=== PATIENT | female | born 1960 | race Caucasian/White ===

== ENCOUNTER 2017-04-14 23:06 | Emergency (ER) | payer MEDICARE, OTHER ==
[~2017-04-14] VITALS: Ht 160 cm; Wt 55.0 kg
[2017-04-14 23:15] VITALS: Ht 160 cm; Wt 55.0 kg
[2017-04-15] MEDS ORDERED: LEVETIRACETAM 1000 MG (PMX) 100 ML IVPB STA (00:09)
[2017-04-15] MEDS ORDERED: SOD CHLORIDE 0.9% 500 ML IV STA (00:09)
[2017-04-15] MEDS ORDERED: LORAZEPAM 2 MG INJ IV STA (00:09)
[2017-04-15 00:30] LABS: BASOPHILS % 0.8 % (0.0-2.0); EOSINOPHILS # 0.3 10^3/ul (0.0-0.5); EOSINOPHILS % 6.5 % (0.0-7.0); HEMATOCRIT 43.2 % (37.0-47.0); HEMOGLOBIN 15.4 g/dl (12.0-16.0); LYMPHOCYTES # 1.5 10^3/ul (0.8-2.9); LYMPHOCYTES % 31.3 % (15.0-51.0); MEAN CORPUSCULAR HEMOGLOBIN 39.4 pg (29.0-33.0); MEAN CORPUSCULAR HGB CONC 35.6 g/dl (32.0-37.0); MEAN CORPUSCULAR VOLUME 110.5 fl (82.0-101.0); MEAN PLATELET VOLUME 8.8 fl (7.4-10.4); MONOCYTE # 0.4 10^3/ul (0.3-0.9); MONOCYTES % 7.1 % (0.0-11.0); NEUTROPHIL # 2.6 10^3/ul (1.6-7.5); NEUTROPHILS % 53.7 % (39.0-77.0); PLATELET COUNT 186 10^3/UL (140-415); RED BLOOD COUNT 3.91 10^6/ul (4.20-5.40); RED CELL DISTRIBUTION WIDTH 12.4 % (11.5-14.5); WHITE BLOOD COUNT 4.9 10^3/ul (4.8-10.8)
[2017-04-15 00:57] LABS: ANION GAP 15 (8-16); BLOOD UREA NITROGEN 7 mg/dl (7-20); CALCIUM 9.9 mg/dl (8.4-10.2); CARBON DIOXIDE 27 mmol/L (21-31); CHLORIDE 103 mmol/L (97-110); CREATININE 0.72 mg/dl (0.44-1.00); GLUCOSE 83 mg/dl (70-220); POTASSIUM 3.9 mmol/L (3.5-5.1); SODIUM 141 mmol/L (135-144)
[2017-04-15 01:11] LABS: TROPONIN-I < 0.012 ng/ml (0.00-0.12)
--- NOTE | 2017-04-15 01:40 | RADRPT ---
PROCEDURE: XR Chest. CLINICAL INDICATION: Seizure. TECHNIQUE: Single frontal view of the chest. COMPARISON: None. FINDINGS: The cardiomediastinal silhouette is within normal limits. The lungs are clear. No signs of pleural f luid or pneumothorax are seen. The osseous structures and soft tissues are unremarkable. IMPRESSION: No evidence for active cardiopulmonary disease. RPTAT: [facility] Physician Denise Date Time Electronically viewed and signed by Physician Denise on 04/15/2017 01:40 RS/
--- NOTE | 2017-04-15 01:43 | RADRPT ---
PROCEDURE: CT head, without contrast. CLINICAL INDICATION: Seizure. TECHNIQUE: Noncontrast CT examination of the head, with axial, sagittal and coronal reformatted im ages. Automated dose exposure control was employed. CTDI: 45.01 and DLP: 720.23. COMPARISON: None. FINDINGS: No acute hemorrhage. Subarachnoid spaces are substantially preserved and symmetric. Ventricles ar e unremarkable. No mass effect. Ball-white matter distinction is preserved without evident decreased attenuation t o suggest acute or recent infarct. Sinuses and osseous structures are unremarkable. IMPRESSION: No acute process in the head. RPTAT: [facility] Physician Denise Date Time Electronically viewed and signed by Physician Denise on 04/15/2017 01:42 RS/
--- NOTE | 2017-04-15 02:03 | ERD ---
ER Documentation Chief Complaint Date/Time DATE: 04/15/17 TIME: 02:03 Chief Complaint seizure unwitnessed; not taking any seizure meds; hx of seizure per pt HPI Significant female who underwent a seizure. Patient history of seizure disorder not taking meds. No tongue biting no incontinence. No trauma. No other current complaints. ROS All systems reviewed and are negative except as per history of present illness. Allergies Allergies: Coded Allergies: No Known Allergy (Unverified , 04/14/17) Physical Exam Vitals Vital Signs Date Time Temp Pulse Resp B/P Pulse Ox O2 Delivery O2 Flow Rate FiO2 04/14/17 23:15 98.4 102 20 105/64 99 Physical Exam Const: [] Head: Atraumatic Eyes: Normal Conjunctiva ENT: Normal External Ears, Nose and Mouth. Neck: Full range of motion..~ No meningismus. Resp: Clear to auscultation bilaterally Cardio: Regular rate and rhythm, no murmurs Abd: Soft, non tender, non distended. Normal bowel sounds Skin: No petechiae or rashes Back: No midline or flank tenderness Ext: No cyanosis, or edema Neur: Awake and alert Psych: Normal Mood and Affect Result Diagram: 04/15/17 0015 04/15/17 0015 Results 24 hrs Laboratory Tests Test 04/15/17 00:15 White Blood Count 4.910^3/ul Red Blood Count 3.9110^6/ul Hemoglobin 15.4g/dl Hematocrit 43.2% Mean Corpuscular Volume 110.5fl Mean Corpuscular Hemoglobin 39.4pg Mean Corpuscular Hemoglobin Concent 35.6g/dl Red Cell Distribution Width 12.4% Platelet Count 26885^3/UL Mean Platelet Volume 8.8fl Neutrophils % 53.7% Lymphocytes % 31.3% Monocytes % 7.1% Eosinophils % 6.5% Basophils % 0.8% Nucleated Red Blood Cells % 0.0/100WBC Neutrophils # 2.610^3/ul Lymphocytes # 1.510^3/ul Monocytes # 0.410^3/ul Eosinophils # 0.310^3/ul Basophils # 0.010^3/ul Nucleated Red Blood Cells # 0.010^3/ul Sodium Level 141mmol/L Potassium Level 3.9mmol/L Chloride Level 103mmol/L Carbon Dioxide Level 27mmol/L Anion Gap 15 Blood Urea Nitrogen 7mg/dl Creatinine 0.72mg/dl Glucose Level 83mg/dl Calcium Level 9.9mg/dl Troponin I < 0.012ng/ml Current Medications Medications (Trade) Dose Ordered Sig/Cely Route PRN Reason Start Time Stop Time Status Last Admin Dose Admin Sodium Chloride (NS) 500 ml @ 500 mls/hr Q1H STAT IV 04/15/17 00:09 04/15/17 01:08 DC 04/15/17 00:34 Lorazepam 1 mg 1 mg ONCE STAT IV 04/15/17 00:09 04/15/17 00:10 DC Levetiracetam (Keppra 1,000mg/ 100ml (Pmx)) 100 ml @ 400 mls/hr ONCE STAT IVPB 04/15/17 00:09 04/15/17 00:23 DC 04/15/17 00:34 Procedures/MDM EKG: Rate/Rhythm: [Normal Sinus Rhythm] QRS, ST, T-waves: [No changes consistent w/ acute ischemia] Impression: [No evidence of ischemia or arrhythmia] Chest X-ray 1V Interpreted by me: Soft Tissue: No acute abnormalities Bones: No acute abnormalities Mediastinum/Cardiac Silhouette/Lungs: [No acute abnormalities] Medical decision-makin-year-old female who comes in with complaints of seizure disorder. Patient treated with Keppra. Discharged home with Keppra. Told return for any seizure-like activity. Upon discharge patient is alert and oriented 4 with this good decision-making capacity and completely nonfocal neurologically Departure Diagnosis: Primary Impression: Seizure disorder Condition: Stable ANGELINA GENTILE Apr 15, 2017 02:03
[2017-04-15] MEDS ORDERED: LEVE500S8 PO (02:04)
[2017-04-15 02:37] VITALS: BP 110/74; PULSE 82; RESP 20; TEMP 98.4
== END 2017-04-15 05:56 | disposition home or self-care (01) ==
LOC: E/R 23:06
DX: G40.909 Epilepsy, unspecified, not intractable, without status epilepticus (principal)
CPT/HCPCS: 36415; 70450; 71010; 80048; 84484; 85025; 93005; 96374; 96375; 99285; J1953; J2060; J7040